=== PATIENT | female | born 1935 | race Caucasian/White ===

== ENCOUNTER 2017-10-13 09:15 | Day surgery (SDC) | payer OTHER ==
[2017-10-13] MEDS ORDERED: DIPRIVAN VIAL ONE (09:29)
[2017-10-13] MEDS ORDERED: NS 500 ML IV 500 ML IV ONE (10:48)
[2017-10-13] MEDS ORDERED: TETRACAINE 0.5% OPHTH 1 DOSE AFFEYE ONE ×2 (11:17→13:32)
[2017-10-13] MEDS ORDERED: VIGAMOX 0.5% OPHTH 1 DOSE AFFEYE ONE ×5 (11:20→14:01)
[2017-10-13] MEDS ORDERED: PROLENSA OPHTH 1 DOSE AFFEYE ONE (11:32)
[2017-10-13] MEDS ORDERED: ALPHAGAN-P OPHTH 1 DOSE AFFEYE ONE (11:33)
[2017-10-13] MEDS ORDERED: CYCLOGYL 1% OPHTH 1 DOSE OP ONE ×3 (11:34→11:38)
[2017-10-13] MEDS ORDERED: AK-DILATE 2.5% OPHTH 1 DOSE OP ONE ×3 (11:34→11:38)
[2017-10-13] MEDS ORDERED: MYDRIACIL OPHTH 1 DOSE AFFEYE ONE ×3 (11:34→11:38)
[2017-10-13] MEDS ORDERED: BETADINE OPHTH SOLN 5% EACHEYE ONE (13:32)
[2017-10-13] MEDS ORDERED: DUOVISC IO ONE ×2 (13:39→13:49)
[2017-10-13] MEDS ORDERED: ADRENALINE CHL INJ IJ ONE ×2 (13:39→13:49)
[2017-10-13] MEDS ORDERED: BSS OPHTH (PLAIN) 500 ML with VANCOMYCIN HCL 500 MG VIAL 25 MG, ADRENALINE CHL INJ 1 MG IR ONE ×6 (13:39)
[2017-10-13] MEDS ORDERED: XYLOCAINE-MPF 1% IJ ONE ×2 (13:39→13:49)
[2017-10-13 16:24] VITALS: BP 160/73
== END 2017-10-13 14:25 | disposition home or self-care (01) ==
LOC: SURG1 09:15
PROVIDERS: ATTEND Ophthalmology
PROC: 08DK3ZZ Extraction of Left Lens, Percutaneous Approach (ICD-10-PCS; principal; 2017-10-13 16:30)
PROC: 08RK3JZ Replacement of Left Lens with Synthetic Substitute, Percutaneous Approach (ICD-10-PCS; principal; 2017-10-13 16:30)
DX: H25.12 Age-related nuclear cataract, left eye (principal); H25.042 Posterior subcapsular polar age-related cataract, left eye
CPT/HCPCS: 99100; A4217; J0170; J3370; J3490

== ENCOUNTER 2017-10-27 07:17 | Day surgery (SDC) | payer OTHER ==
[~2017-10-27 07:17] MED LIST: PROLENSA OPHTH 1 DOSE AFFEYE ONE; TETRACAINE 0.5% OPHTH 1 DOSE AFFEYE ONE; VIGAMOX 0.5% OPHTH 1 DOSE AFFEYE ONE
[2017-10-27] MEDS ORDERED: CYCLOGYL 1% OPHTH 1 DOSE OP ONE ×4 (07:18→07:30)
[2017-10-27] MEDS ORDERED: AK-DILATE 2.5% OPHTH 1 DOSE OP ONE ×4 (07:18→07:30)
[2017-10-27] MEDS ORDERED: MYDRIACIL OPHTH 1 DOSE AFFEYE ONE ×4 (07:18→07:30)
[2017-10-27] MEDS ORDERED: NS 500 ML IV 500 ML IV ONE (07:27)
[2017-10-27] MEDS ORDERED: TETRACAINE 0.5% OPHTH 1 DOSE AFFEYE ONE (09:57)
[2017-10-27] MEDS ORDERED: BETADINE OPHTH SOLN 5% EACHEYE ONE (09:57)
[2017-10-27] MEDS ORDERED: VIGAMOX 0.5% OPHTH 1 DOSE AFFEYE ONE ×2 (10:06→10:28)
[2017-10-27] MEDS ORDERED: XYLOCAINE-MPF 1% IJ ONE (10:11)
[2017-10-27] MEDS ORDERED: DUOVISC IO ONE (10:11)
[2017-10-27] MEDS ORDERED: ADRENALINE CHL INJ IJ ONE (10:11)
[2017-10-27] MEDS ORDERED: BSS OPHTH (PLAIN) 500 ML with VANCOMYCIN HCL 500 MG VIAL 25 MG, ADRENALINE CHL INJ 1 MG IR ONE ×3 (10:11)
[2017-10-27 10:45] VITALS: BP 178/86
[2017-10-27] MEDS ORDERED: DIPRIVAN VIAL ONE (10:55)
== END 2017-10-27 10:50 | disposition home or self-care (01) ==
LOC: SURG1 07:17
PROVIDERS: ATTEND Ophthalmology
PROC: 08RJ3JZ Replacement of Right Lens with Synthetic Substitute, Percutaneous Approach (ICD-10-PCS; principal; 2017-10-27 09:45)
PROC: 08DJ3ZZ Extraction of Right Lens, Percutaneous Approach (ICD-10-PCS; principal; 2017-10-27 09:45)
DX: H25.11 Age-related nuclear cataract, right eye (principal); H25.041 Posterior subcapsular polar age-related cataract, right eye; H52.221 Regular astigmatism, right eye
CPT/HCPCS: 99100; A4217; J0170; J3370; J3490